=== PATIENT | female | born 1990 ===

== ENCOUNTER 2021-02-28 12:59 | Emergency (ER) | payer OTHER ==
[~2021-02-28] VITALS: Ht 170.2 cm; Wt 46.1 kg
[2021-02-28] MEDS ORDERED: LORazepam 1MG TABLET ONE (13:51)
--- NOTE | 2021-02-28 13:57 | NUR ---
Pt is anxious after no sleep for appoximately 85 hours while out on [employer] for [employer]. states a glass of wine, Tylenol, OTC sleep aid, Benadryl, and a "small blue pill" taken while out there without effect. MD at bedside for further exam. Ativan at bedside for anxiety. Pt has concern about taking another medication until after MD explains safety.
[2021-02-28] MEDS ORDERED: LORazepam 1MG TABLET PO ONE (14:00)
[2021-02-28 14:25] LABS: BASOPHILS % (AUTO) 0 % (0-1); EOSINOPHILS % (AUTO) 0 % (1-7); LYMPHOCYTES % (AUTO) 18 % (22-44); MEAN CORPUSCULAR HEMOGLOBIN 29.8 pg (27.0-34.8); MEAN CORPUSCULAR HGB CONC 33.8 g/dL (32.4-35.8); MEAN PLATELET VOLUME 7.3 fL (7.4-10.4); MONOCYTES % (AUTO) 8 % (2-9); NEUTROPHILS % (AUTO) 74 % (42-75); PLATELET COUNT 369 x10^3/uL (130-400); RED BLOOD COUNT 4.81 x10^6/uL (3.82-5.3); RED CELL DISTRIBUTION WIDTH 12.4 % (9.6-15.2)
--- NOTE | 2021-02-28 14:26 | NUR ---
Pt assisted to restroomfor UA sample.
[2021-02-28 14:38] LABS: ALANINE AMINOTRANSFERASE 44 U/L (12-78); ALBUMIN 4.1 g/dL (3.4-5.0); ANION GAP 7 mmol/L (5-15); CALCIUM 9.4 mg/dL (8.5-10.1); CHLORIDE 98 mmol/L (98-107); CREATININE 0.54 mg/dL (0.55-1.02)
[2021-02-28 14:42] LABS: ALKALINE PHOSPHATASE 65 U/L (45-117); BILIRUBIN,TOTAL 0.6 mg/dL (0.2-1.0)
[2021-02-28 14:57] LABS: MICROSCOPIC NOT IND
--- NOTE | 2021-02-28 15:26 | NUR ---
Pt up to use restroom again. All results reviewed and chart marked for recheck by MD now.
--- NOTE | 2021-02-28 15:53 | NUR ---
Report given to RN and care transferred for end of shift.
[2021-02-28 15:54] VITALS: BP 119/78
--- NOTE | 2021-02-28 15:54 | NUR ---
RECEIVED REPORT FROM KEYUR FLORES. PT RESTING ON JOHANNAJOSE G. NADN. VASQUEZ.
--- NOTE | 2021-02-28 16:26 | NUR ---
ERP DR. POLLARD AT BEDSIDE FOR RE-EVAL.
== END 2021-02-28 16:57 | disposition home or self-care (01) ==
LOC: ED 16:44
DX: F51.02 Adjustment insomnia (principal); F17.210 Nicotine dependence, cigarettes, uncomplicated; Z20.822 Contact with and (suspected) exposure to COVID-19
CPT/HCPCS: 36415; 71045; 80053; 81003; 84703; 85025; 99284; U0003; U0005

== ENCOUNTER 2021-03-01 15:20 | Emergency (ER) | payer OTHER ==
[~2021-03-01] VITALS: Ht 170.2 cm; Wt 46.0 kg
[2021-03-01 15:34] VITALS: BP 119/89
--- NOTE | 2021-03-01 16:35 | NUR ---
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
== END 2021-03-01 18:18 | disposition home or self-care (01) ==
LOC: ED 18:01
DX: F51.02 Adjustment insomnia (principal)
CPT/HCPCS: 99283